=== PATIENT | male | born 2000 | race Hispanic/Latino ===

== ENCOUNTER 2024-08-31 00:03 | Emergency (ER) | payer OTHER, SELFPAY ==
[~2024-08-31] VITALS: Ht 182.9 cm; Wt 68.0 kg
[2024-08-31 00:04] VITALS: TEMP 97.4
[2024-08-31 00:38] LABS: APPEARANCE,URINE CLEAR (CLEAR); BILIRUBIN,URINE NEGATIVE (NEGATIVE); COLOR,URINE YELLOW (YELLOW); GLUCOSE, URINE (UA) NEGATIVE (NEGATIVE); KETONES,URINE 5 mg/dL (NEGATIVE); LEUKOCYTE ESTERASE ,URINE NEGATIVE Leu/uL (NEGATIVE); NITRATE,URINE NEGATIVE (NEGATIVE); OCCULT BLOOD,URINE LARGE (NEGATIVE); PROTEIN,URINE 30 mg/dL (NEGATIVE)
[2024-08-31] MEDS: morPHINE 4 MG SYG IVP ONE (00:45)
[2024-08-31 00:46] LABS: ADD UA MICROSCOPIC YES
[2024-08-31] MEDS: ondanSETRON 4MG INJ IVP ONE (00:46)
[2024-08-31] MEDS: LACTATED RINGERS 1000ML 1,000 ML IV ONE (00:49)
[2024-08-31 00:53] LABS: BASOPHILS # (AUTO) 0.06 K/uL (0.00-0.20); BASOPHILS % (AUTO) 0.6 % (0.0-5.0); EOSINOPHILS # (AUTO) 0.07 K/uL (0.00-0.70); EOSINOPHILS % (AUTO) 0.7 % (0.0-8.0); HEMATOCRIT 47.2 % (42-54); IMMATURE GRANULOCYTE ABSOLUTE 0.03 K/uL (0-1); LYMPHOCYTES # (AUTO) 3.8 K/uL (1.0-4.8); LYMPHOCYTES % (AUTO) 37.9 % (21.0-51.0); MEAN CORPUSCULAR HEMOGLOBIN 30.1 pg (27.0-33.0); MEAN CORPUSCULAR HGB CONC 34.7 g/dL (32.0-36.0); MEAN CORPUSCULAR VOLUME 86.6 fL (79-99); MONOCYTES # (AUTO) 0.9 K/uL (0.1-1.0); MONOCYTES % (AUTO) 9.1 % (3.0-13.0); NEUTROPHILS # (AUTO) 5.2 K/uL (1.8-7.7); NEUTROPHILS % (AUTO) 51.4 % (40.0-77.0); PLATELET COUNT (AUTO) 337 K/uL (130-400); RED BLOOD CELL COUNT(AUTO) 5.45 MIL/uL (4.50-6.20); WHITE BLOOD COUNT (AUTO) 10.1 K/uL (4.8-10.8)
[2024-08-31 00:55] LABS: MUCUS,URINE MANY LPF (None Seen); RBC,URINE TNTC /HPF (0-1); SQUAMOUS EPITHELIAL CELL,UR RARE /HPF (0-2)
[2024-08-31 01:05] LABS: CREATININE 1.4 mg/dL (0.5-1.3); POTASSIUM 3.3 mmol/L (3.5-5.1)
[2024-08-31] MEDS: morPHINE 2 MG SYG IVP ONE (01:07)
[2024-08-31 01:09] LABS: AMPHET/METH SCREEN,URINE NEGATIVE (NEGATIVE); BARBITURATE SCREEN, URINE NEGATIVE (NEGATIVE); BENZODIAZEPINES SCREEN,URINE NEGATIVE (NEGATIVE); CANNABINOID SCREEN,URINE NEGATIVE (NEGATIVE); COCAINE SCREEN,URINE NEGATIVE (NEGATIVE); OPIATE SCREEN,URINE NEGATIVE (NEGATIVE); PHENCYCLIDINE SCREEN,URINE NEGATIVE (NEGATIVE)
[2024-08-31 01:12] LABS: BILIRUBIN,TOTAL 0.6 mg/dL (0.2-1.0); TOTAL PROTEIN, SERUM 7.6 g/dL (6.0-8.3)
[2024-08-31] MEDS ORDERED: IOHEXOL 350 MG/ML 100ML INFUS..BTL IV ONE (01:29)
--- NOTE | 2024-08-31 01:34 | NUR ---
MD MADE AWARE OF POTASSIUM LEVEL. ORDERS GIVEN AND TRANSCRIBED.
[2024-08-31] MEDS: PoTASSium chl 10% ELIXIR 20MEQ 20 MEQ/15 ML UDCUP PO ONE ×2 (01:40→02:09)
--- NOTE | 2024-08-31 02:02 | ERN ---
General Chief Complaint: Flank Pain Stated Complaint: RIGHT FLANK PAIN Time Seen by MD: 00:15 History of Present Illness Initial Comments Mr. Garvin is a very pleasant 24-year-old male who comes in today with a right lower quadrant abdominal pain. Patient reports the abdominal pain started prior to arrival. Patient reports the pain radiates to his groin. Patient denies fevers chills lightheadedness dizziness double vision blurry vision chest pain numbness or weakness Allergies: Coded Allergies: No Known Allergies (Verified Allergy, Unknown, 10/25/20) Past Medical History Past Medical History: Hyperthyroid, Hypothyroid Past Surgical History: None ROS Dictation Constitutional: Negative for fever,chills, and weight loss Eyes: Negative for injury, pain,redness, and discharge ENT: Negative for injury,pain or swelling Cardiovascular: Negative for chest pain, palpitations, and edema Respiratory: Negative for shortness of breath, cough, and wheezing, Abdomen/GI: Positive for abdominal pain Back: Negative for injury and pain : Negative for injury, bleeding and discharge MS/Extremity: Negative for injury and deformity Skin: Negative for rash, and discoloration Neuro: Negative for headache, weakness, numbness, tingling, and seizure Psych: Negative for suicide ideation, homicidal ideation, and hallucinations Physical Exam Physical Exam Dictation General: Anxious male who appears to be in some distress Head/Face: Normocephalic, atraumatic Eyes: PERRL, EOMI, vision at baseline ENT: oral cavity clear, Neck: Trachea midline, supple Cardiovascular: RRR, tachycardic Respiratory: CTAB, no respiratory distress, No rales or wheezes Abdomen: Pain with palpation in the right lower quadrant Skin: Warm, dry, normal turgor, no rash MS/Extremity: Pulses equal, Neuro: COAx4, GCS 15, strength 5/5 Results Laboratory and Microbiology Lab and Micro Result Laboratory Tests Test 08/31/24 00:12 08/31/24 00:42 Urine Color YELLOW (YELLOW) Urine Appearance CLEAR (CLEAR) Urine pH 6.0 (5.0-8.0) Urine Specific [place] 1.037 (1.001-1.031) Urine Protein 30 mg/dL (NEGATIVE) H Urine Glucose (UA) NEGATIVE mg/dL (NEGATIVE) Urine Ketones 5 mg/dL (NEGATIVE) H Urine Occult Blood LARGE (NEGATIVE) H Urine Nitrate NEGATIVE (NEGATIVE) Urine Bilirubin NEGATIVE mg/dL (NEGATIVE) Urine Urobilinogen 2.0 mg/dL (0.2-1.0) H Urine Leukocyte Esterase NEGATIVE [place]/uL Urine RBC TNTC /HPF (0-1) H Urine WBC 6-10 /HPF (0-1) H Urine Squamous Epithelial Cells RARE /HPF (0-2) Urine Bacteria None /HPF (None Seen) Urine Opiates Screen NEGATIVE (NEGATIVE) Urine Barbiturates Screen NEGATIVE (NEGATIVE) Urine Phencyclidine Screen NEGATIVE (NEGATIVE) Urine Amphetamines Screen NEGATIVE (NEGATIVE) Urine Benzodiazepines Screen NEGATIVE (NEGATIVE) Urine Cocaine Screen NEGATIVE (NEGATIVE) Urine Marijuana (THC) Screen NEGATIVE (NEGATIVE) White Blood Count 10.1 K/uL (4.8-10.8) Red Blood Count 5.45 MIL/uL (4.50-6.20) Hemoglobin 16.4 g/dL (14.0-18.0) Hematocrit 47.2 % (42-54) Mean Corpuscular Volume 86.6 fL (79-99) Mean Corpuscular Hemoglobin 30.1 pg (27.0-33.0) Mean Corpuscular Hemoglobin Concent 34.7 g/dL (32.0-36.0) Red Cell Distribution Width 12.0 % (11.0-15.5) Platelet Count 337 K/uL (130-400) Mean Platelet Volume 10.4 fL (7.5-10.5) Immature Granulocyte % (Auto) 0.3 % (0-1) Neutrophils (%) (Auto) 51.4 % (40.0-77.0) Lymphocytes (%) (Auto) 37.9 % (21.0-51.0) Monocytes (%) (Auto) 9.1 % (3.0-13.0) Eosinophils (%) (Auto) 0.7 % (0.0-8.0) Basophils (%) (Auto) 0.6 % (0.0-5.0) Neutrophils # (Auto) 5.2 K/uL (1.8-7.7) Lymphocytes # (Auto) 3.8 K/uL (1.0-4.8) Monocytes # (Auto) 0.9 K/uL (0.1-1.0) Eosinophils # (Auto) 0.07 K/uL (0.00-0.70) Basophils # (Auto) 0.06 K/uL (0.00-0.20) Absolute Immature Granulocyte (auto 0.03 K/uL (0-1) Nucleated Red Blood Cells 0.0 % (0.0-0.19) Sodium Level 140 mmol/L (136-145) Potassium Level 3.3 mmol/L (3.5-5.1) L Chloride Level 103 mmol/L (101-111) Carbon Dioxide Level 29 mmol/L (21-32) Blood Urea Nitrogen 19 mg/dL (7-18) H Creatinine 1.4 mg/dL (0.5-1.3) H Glomerular Filtration Rate Calc 72 mL/min (>90) Random Glucose 116 mg/dL (70-105) H Total Calcium 9.3 mg/dL (8.5-10.1) Total Bilirubin 0.6 mg/dL (0.2-1.0) Aspartate Amino Transf (AST/SGOT) 23 U/L (10-37) Alanine Aminotransferase (ALT/SGPT) 51 U/L (12-78) Alkaline Phosphatase 105 U/L (50-136) Total Protein 7.6 g/dL (6.0-8.3) Albumin 4.0 g/dL (3.5-5.0) Amylase Level 67 U/L (25-115) Lipase 28 U/L (16-77) MDM Patient was found to have a 3 mm right renal stone. Advised patient to drink plenty of fluids and take daily Flomax. MDM: Differential diagnosis: Renal stone Rationale: Tests considered and ordered secondary to shared decision making include: Previous outside records reviewed: Old ER visits. Risk of complication and/or morbidity or mortality of patient management: None Medications-Per medication reconciliation Need for hospitalization: Patient does not meet criteria for hospitalization. Need for emergency major/minor surgery: No There are no social concerns with this patient. Prescription drug management Prescriptions will include symptomatic care Patient's prior external medical records from other ER visits were reviewed by me as indicated. Prior testing and results from previous visits were reviewed. Prior tests were taken into account with medical decision making and resource utilization, independent historian/historians were used to obtain complete medical history. I independently interpreted the test that were performed, results were reviewed by me and considered findings on radiology if ordered. Medical management and examination interpretation discussions were had by me with other qualified healthcare professionals as indicated for the patient's care. ED Course Orders Procedure Category Date Status Time Urinalysis Profile LAB 08/31/24 Complete 00:20 Cbc With Differential LAB 08/31/24 Complete 00:36 Comprehensive LAB 08/31/24 Complete Metabolic Panel 00:36 Amylase LAB 08/31/24 Complete 00:36 Lactated Ringers PHA 08/31/24 Complete 1000ml (Lactated 01:00 Ondansetron 4mg Inj PHA 08/31/24 Complete (Zofran 4mg Inj) 01:00 Chest 1vw RAD 08/31/24 Taken 00:36 Lipase LAB 08/31/24 Complete 00:36 Drug Screen Urine LAB 08/31/24 Complete 00:36 Morphine 4mg Syg PHA 08/31/24 Complete (Morphine 4mg Syg) 01:00 Ct Abdomen/Pelvis CT 08/31/24 Taken W/Contrast 00:38 Culture Urine CRUZITO 08/31/24 In Process 00:56 Morphine 2mg Syg PHA 08/31/24 Complete (Morphine 2mg Syg) 01:30 Iohexol (Omnipaque) PHA 08/31/24 Complete 01:29 Potassium Chl 10% PHA 08/31/24 Complete Elixir 20meq (Kcl 10% 02:00 Potassium Chl 10% PHA 08/31/24 Complete Elixir 20meq (Kcl 10% 02:00 Current Medications Medications (Trade) Dose Ordered Sig/Kirsten Route PRN Reason Start Time Stop Time Status Last Admin Dose Admin Iohexol (Omnipaque) 35,000 mg STK-MED ONCE IV 08/31/24 01:29 08/31/24 01:29 DC Lactated Ringer's 1,000 ml @ 0 mls/hr ONCE ONCE IV 08/31/24 01:00 08/31/24 01:01 DC 08/31/24 00:49 Morphine Sulfate (morPHINE 2MG SYG) 2 mg ONCE ONCE IVP 08/31/24 01:30 08/31/24 01:31 DC 08/31/24 01:07 Morphine Sulfate (morPHINE 4MG SYG) 4 mg ONCE ONCE IVP 08/31/24 01:00 08/31/24 01:01 DC 08/31/24 00:45 Ondansetron HCl (zoFRAN 4MG INJ) 4 mg ONCE ONCE IVP 08/31/24 01:00 08/31/24 01:01 DC 08/31/24 00:46 Potassium Chloride (KCl 10% Elixir 20meq/15ml) 20 meq ONCE ONCE PO 08/31/24 02:00 08/31/24 02:01 DC Potassium Chloride (KCl 10% Elixir 20meq/15ml) 40 meq ONCE ONCE PO 08/31/24 02:00 08/31/24 02:01 DC 08/31/24 02:09 Vital Signs Date Time Temp Pulse Resp B/P (MAP) Pulse Ox O2 Delivery O2 Flow Rate FiO2 08/31/24 02:57 60 17 121/85 99 Room Air* 0 21 08/31/24 00:38 71 19 132/92 100 Room Air* 0 21 08/31/24 00:04 97.3 75 18 139/102 100 Room Air 0 DX & DISP Disposition: Discharge Departure Impression: Primary Impression: Renal stone Condition: Stable Scripts Tamsulosin HCl (Flomax) 0.4 Mg Cap.er.24h 0.4 MG PO DAILY for 30 Days, #30 CAPSULE.DR Prov: OCTAVIO HOGUE MD 08/31/24 Additional Instructions: Please follow up with your primary care physician in the next 1-7 days for continuance of care. Please take Flomax daily. Your stone should pass. Please drink anywhere between 2-3 L a day of water Referrals: TESSIE BULLARD MD (PCP) OCTAVIO HOGUE MD Aug 31, 2024 02:02
--- NOTE | 2024-08-31 03:01 | NUR ---
REPORT GIVEN TO FOSTER INMAN AT THIS TIME
[2024-08-31] MEDS ORDERED: TAMS-1 PO (03:42)
[2024-08-31] MEDS: tamSULOsin HCL 0.4 MG CAP.ER.24H PO ONE (03:50)
[2024-08-31 03:52] VITALS: BP 118/79; PULSE 72; RESP 16; O2SAT 100
--- NOTE | 2024-08-31 08:16 | HMCIMG ---
CT ABDOMEN/PELVIS W/CONTRAST REASON: pain COMPARISON: None. FINDINGS: Lung bases are clear. There are no focal liver lesions. The liver does not appear enlarged.. Spleen and pancreas appear unremarkable. The gallbladder appears normal as well. There is a 3 mm stone in the distal right ureter within several centimeters of the right to the ureterovesical junction. There is mild right hydronephrosis and perinephric stranding. Left kidney and ureter appear unremarkable. Urinary bladder appears normal. Bowel loops appear unremarkable. There is no CT evidence of acute appendicitis. There is no evidence of free fluid or intraperitoneal air. There are no focal fluid collections. Aorta and retroperitoneum appear normal as do pelvic soft tissue structures. The anterior abdominal wall is intact. Osseous structures appear unremarkable. IMPRESSION: 1. 3 mm stone in the distal right ureter near the ureterovesical junction, there is mild right hydronephrosis and perinephric stranding. 2. Otherwise unremarkable exam. CT was performed with one or more following dose reduction techniques: automated exposure control, adjustment of the mA and kv according to patient's size, or use of a iterative reconstruction technique.
--- NOTE | 2024-08-31 08:19 | HMCIMG ---
CHEST 1VW REASON: SOB COMPARISON: 04/11/2013 FINDINGS: Single view of the chest was obtained. Lungs are clear. Heart size is normal. There is no pulmonary vascular congestion. Mediastinum and bony thorax appear unremarkable. IMPRESSION: 1. Normal single view chest x-ray.
== END 2024-08-31 04:03 | disposition home or self-care (01) ==
LOC: EDH 00:03
DX: N13.2 Hydronephrosis with renal and ureteral calculous obstruction (principal); E03.9 Hypothyroidism, unspecified
CPT/HCPCS: 99285; 74177; 96374; 96361; 71045; 96375; 82150; 80053; 80305; 83690; 85025; 87086 ×3; 87186 ×2; 36415; 96376; 81001; J7120; J2270 ×2; J2405; Q9967